=== PATIENT | male | born 1935 | race Caucasian/White ===

== ENCOUNTER 2018-05-07 17:49 | Inpatient (IN) | payer MEDICARE, OTHER ==
[~2018-05-07] VITALS: Ht 154.4 cm; Wt 77.1 kg
[2018-05-07] MEDS ORDERED: FLUT1BLS IH (18:21)
[2018-05-07] MEDS ORDERED: CYAN100T3 PO (18:21)
[2018-05-07] MEDS ORDERED: LEVO100T10 PO (18:21)
[2018-05-07] MEDS ORDERED: ESCI10TA PO (18:21)
[2018-05-07] MEDS ORDERED: EZET10TA13 PO (18:21)
[2018-05-07] MEDS ORDERED: ASPI-605 PO (18:21)
[2018-05-07] MEDS ORDERED: SIMV20TA2 PO (18:21)
[2018-05-07] MEDS ORDERED: AMITIZA 24 MCG (18:21)
[2018-05-07] MEDS ORDERED: TIOT18CA3 IH (18:21)
[2018-05-07] MEDS ORDERED: OMEP1CAP4 PO (18:21)
[2018-05-07] MEDS ORDERED: METO25TA6 PO (18:21)
[2018-05-07] MEDS ORDERED: VIT1TABL46 PO (18:21)
[2018-05-07] MEDS ORDERED: RANI300T4 PO (18:21)
[2018-05-07] MEDS ORDERED: DOCU-270 PO (18:21)
[2018-05-07] MEDS ORDERED: BIMA2.5D5 OP (18:21)
--- NOTE | 2018-05-07 18:52 | NUR ---
Dr Irby is at bedside evaluating the patient.
[2018-05-07 18:54] LABS: BASOPHILS % (AUTO) 0.5 % (0.0-2.0); EOSINOPHILS # (AUTO) 0.1 K/uL (0.0-0.7); EOSINOPHILS % (AUTO) 0.6 % (0.0-7.0); HEMATOCRIT 37.2 % (36.7-47.1); HEMOGLOBIN 12.4 g/dL (12.5-16.3); LYMPHOCYTES # (AUTO) 1.3 K/uL (20.0-40.0); LYMPHOCYTES % (AUTO) 12.7 % (20.5-51.5); MEAN CORPUSCULAR HEMOGLOBIN 31.5 uug (23.8-33.4); MEAN CORPUSCULAR HGB CONC 33 g/dL (32.5-36.3); MEAN CORPUSCULAR VOLUME 94.5 fL (73.0-96.2); MONOCYTES # (AUTO) 0.6 K/uL (2.0-10.0); MONOCYTES % (AUTO) 5.7 % (0.0-11.0); NEUTROPHILS # (AUTO) 8.2 K/uL (1.8-8.9); NEUTROPHILS % (AUTO) 80.5 % (38.5-71.5); PLATELET COUNT (AUTO) 197 K/uL (152-348); RED BLOOD CELL COUNT(AUTO) 3.93 MIL/uL (4.06-5.63); WHITE BLOOD COUNT (AUTO) 10.1 K/uL (3.6-10.2)
[2018-05-07 19:00] LABS: CARBON DIOXIDE 25 mmol/L (21-32); CHLORIDE 101 mmol/L (98-107); CREATININE 1.6 mg/dL (0.6-1.3); GLUCOSE 116 mg/dL (74-106); POTASSIUM 4.2 mmol/L (3.5-5.1); UREA NITROGEN, BLOOD 35 mg/dL (7-18)
[2018-05-07] MEDS ORDERED: IPRATROPIUM BROMIDE 0.5 MG/2.5 ML NEBU NEB ONE (19:00)
[2018-05-07] MEDS ORDERED: ALBUTEROL SULFATE 2.5 MG/3 ML NEBU NEB ONE (19:00)
[2018-05-07] MEDS ORDERED: ONDANSETRON ODT 4 MG TAB.RAPDIS SL ONE (19:00)
[2018-05-07 19:04] LABS: *BILIRUBIN,URIN NEGATIVE (NEGATIVE); *BLOOD, URINE NEGATIVE (NEGATIVE); *CLARITY,URINE SLIGHTLY CLOUDY (CLEAR); *COLOR,URINE YELLOW (YELLOW); *KETONES,URINE NEGATIVE (NEGATIVE); *PROTEIN,URINE 1+ (NEGATIVE); LEUKOCYTE ESTERASE ,URINE TRACE (NEGATIVE); NITRITE, URINE POSITIVE (NEGATIVE); UGLUCOSE NEGATIVE (NEGATIVE)
[2018-05-07] MEDS ORDERED: IPRATROPIUM BROMIDE 0.5 MG/2.5 ML NEBU ONE (19:04)
[2018-05-07] MEDS ORDERED: ALBUTEROL SULFATE 2.5 MG/3 ML NEBU ONE (19:04)
[2018-05-07] MEDS ORDERED: ONDANSETRON ODT 4 MG TAB.RAPDIS ONE (19:06)
--- NOTE | 2018-05-07 19:08 | NUR ---
Seen by MD, Orders received. Zofran administered. Breathing treatment being administered.
[2018-05-07 19:13] LABS: BACTERIA,URINE MODERATE /HPF (NONE SEEN); RBC,URINE 0-3 /HPF (0-3); SQUAMOUS EPITHELIAL CELL,UR FEW /HPF (NONE SEEN); WBC,URINE 20-50 /HPF (0-3)
[2018-05-07 19:14] LABS: ALANINE AMINOTRANSFERASE 24 U/L (16-63); ALKALINE PHOSPHATASE 58 U/L (50-136); ASPARTATE AMINOTRANSFERASE 23 U/L (15-37); BILIRUBIN,DIRECT 0.3 mg/dL (0.0-0.2); TOTAL PROTEIN, SERUM 7.3 g/dL (6.4-8.2)
[2018-05-07] MEDS ORDERED: methylPREDNISolone SOD SUCC 125 MG/2 ML VIAL IV ONE (19:30)
--- NOTE | 2018-05-07 19:30 | NUR ---
zofran administered as ordered.
--- NOTE | 2018-05-07 19:45 | NUR ---
Iv inserted gauge 22 on left for arm. Intact and patent
--- NOTE | 2018-05-07 19:50 | NUR ---
Call placed to [facility], Dr. Duenas has been paged.
[2018-05-07] MEDS ORDERED: methylPREDNISolone SOD SUCC 125 MG/2 ML VIAL ONE (19:53)
--- NOTE | 2018-05-07 19:55 | NUR ---
LETTY spoke to Dr. Duenas.
[2018-05-07] MEDS ORDERED: AZITHROMYCIN IV 500 MG in IV DEXTROSE 5% 250 ML IV ONE (20:00)
[2018-05-07] MEDS ORDERED: IV NORMAL SALINE 1000 ML BAG IV ONE ×2 (20:00→20:30)
[2018-05-07] MEDS ORDERED: CEFTRIAXONE 1 G in IV DEXTROSE 5% 50 ML IV ONE (20:00)
--- NOTE | 2018-05-07 20:00 | NUR ---
Rocephin 1gm administered as ordered. No adverse reactions noted.
[2018-05-07] MEDS ORDERED: CEFTRIAXONE 1 G VIAL ONE (20:07)
[2018-05-07] MEDS ORDERED: AZITHROMYCIN 500 MG VIAL IV ONE (20:07)
--- NOTE | 2018-05-07 20:10 | NUR ---
MD in room. Informed pt and family of pending admission.
[2018-05-07 20:24] LABS: ABG BASE EXCESS 2.4 mmol/L; ABG HCO3 25.2 mmol/L; ABG PCO2 32.8 mmHg (35.0-45.0); ABG PH 7.503 (7.350-7.450); ABG PO2 49.7 mmHg (75.0-100.0); ABG SITE RIGHT RADIAL; MetHb 0.3 % (0.0-1.5); O2Hb 82.6 % (94.0-97.0)
--- NOTE | 2018-05-07 21:30 | NUR ---
ADMITTED PATIENT IN TELE UNIT UNDER THE CARE DR. ROWLAND, INVENTORY LIST DONE. PATIENT AWAKE SPEAK ALGERIAN, DAUGHTER INTERPRET FOR THE FATHER. PATIENT ON OXYGEN VIA MASK 10 LITER, OXYGEN SAT 92-97%, CONT TO MONITOR.
[2018-05-07] MEDS ORDERED: ACETAMINOPHEN 325 MG TABLET PO PRN (21:45)
[2018-05-07] MEDS ORDERED: HYDROCODONE/APAP 5-325MG TABLET PO PRN (21:45)
[2018-05-07] MEDS ORDERED: Z GUARD REMEDY PASTE 57 GM TUBE TOP PRN (21:45)
[2018-05-07] MEDS ORDERED: MAGNESIUM HYDROXIDE 30 ML LIQUID UDC PO PRN (21:45)
[2018-05-07] MEDS ORDERED: ONDANSETRON 4 MG/2 ML VIAL IV PRN (21:45)
[2018-05-07] MEDS ORDERED: ZOLPIDEM 5 MG TABLET PO PRN (21:45)
[2018-05-07 21:56] VITALS: BP 130/69
[2018-05-08] VITALS: BP 140/66
[2018-05-08 04:00] VITALS: BP 127/80
[2018-05-08 05:17] LABS: BASOPHILS % (AUTO) 0.1 % (0.0-2.0); HEMATOCRIT 34.4 % (36.7-47.1); HEMOGLOBIN 11.6 g/dL (12.5-16.3); LYMPHOCYTES # (AUTO) 0.4 K/uL (20.0-40.0); LYMPHOCYTES % (AUTO) 6.1 % (20.5-51.5); MEAN CORPUSCULAR HEMOGLOBIN 31.3 uug (23.8-33.4); MEAN CORPUSCULAR HGB CONC 34 g/dL (32.5-36.3); MEAN CORPUSCULAR VOLUME 92.9 fL (73.0-96.2); MONOCYTES # (AUTO) 0.1 K/uL (2.0-10.0); MONOCYTES % (AUTO) 1.2 % (0.0-11.0); NEUTROPHILS # (AUTO) 6.2 K/uL (1.8-8.9); NEUTROPHILS % (AUTO) 92.6 % (38.5-71.5); PLATELET COUNT (AUTO) 200 K/uL (152-348); WHITE BLOOD COUNT (AUTO) 6.7 K/uL (3.6-10.2)
--- NOTE | 2018-05-08 06:15 | NUR ---
PATIENT SLEPT MOST OF THE NIGHT, HOB ELEVATED NO SOB NO CHEST PAIN, TELE SINUS RHYTHM AT THIS TIME. CONT ON OXYGEN 10 LPM VIA MASK, O2 SAT 93% TO 97%. PATIENT OXYGEN SAT GOES DOWN WHEN OR DURING ACTIVITY, WITH SLIGHT COUGH WITH SMALL AMOUNT OF WHITISH SPUTUM, CONT TO MONITOR.
[2018-05-08 07:07] LABS: ALANINE AMINOTRANSFERASE 22 U/L (16-63); ALKALINE PHOSPHATASE 62 U/L (50-136); ASPARTATE AMINOTRANSFERASE 21 U/L (15-37); BILIRUBIN,TOTAL 0.6 mg/dL (0.2-1.0); CARBON DIOXIDE 26 mmol/L (21-32); CHLORIDE 101 mmol/L (98-107); CHOLESTEROL 136 mg/dL (<200); CREATININE 1.4 mg/dL (0.6-1.3); GLUCOSE 190 mg/dL (74-106); HDL CHOLESTEROL 84 mg/dL (40-60); MAGNESIUM 1.8 mg/dL (1.8-2.4); PHOSPHOROUS 3.7 mg/dL (2.5-4.9); POTASSIUM 4.2 mmol/L (3.5-5.1); TOTAL PROTEIN, SERUM 7.1 g/dL (6.4-8.2); TRIGLYCERIDES 80 MG/DL (30-150); UREA NITROGEN, BLOOD 29 mg/dL (7-18)
--- NOTE | 2018-05-08 07:15 | NUR ---
RECEIVED PATIENT AWAKE ON BED, AAOX3 CUBAN SPEAKING BUT CAN MAKE NEEDS KNOWN. NO ACUTE DISTRESS NOTED ON O2 @ 6LPM VIA MASK. O2 SAT WNL. NO SOB NOTED AT THIS TIME. IV ACCESS ON LEFT FOREARM #22 INTACT AND PATENT. RIGHT UROSTOMY BAG IN PLACE. COMFORT MEASURES PROVIDED. CALL LIGHT WITHIN REACH.
--- NOTE | 2018-05-08 08:15 | NUR ---
SEEN AND EXAMINED BY DR ROWLAND.
[2018-05-08] MEDS: ENOXAPARIN SODIUM 40 MG/0.4 ML DISP.SYRIN SQ SCH (08:56)
[2018-05-08] MEDS ORDERED: methylPREDNISolone SOD SUCC 125 MG/2 ML VIAL IV SCH (11:00)
[2018-05-08] MEDS ORDERED: IPRATROPIUM BROMIDE 0.5 MG/2.5 ML NEBU NEB PRN (11:00)
[2018-05-08] MEDS ORDERED: ALBUTEROL SULFATE 2.5 MG/3 ML NEBU NEB PRN (11:00)
[2018-05-08] MEDS: IPRATROPIUM BROMIDE 0.5 MG/2.5 ML NEBU NEB SCH ×3 (11:53→19:34)
[2018-05-08] MEDS: ALBUTEROL SULFATE 2.5 MG/3 ML NEBU NEB SCH ×3 (11:53→19:34)
[2018-05-08] MEDS: methylPREDNISolone SOD SUCC 40 MG/ML VIAL IV SCH ×2 (11:56→21:13)
[2018-05-08 12:18] VITALS: BP 114/73
[2018-05-08 12:20] VITALS: BP 114/73
--- NOTE | 2018-05-08 12:30 | NUR ---
OXYGEN TITRATED BY RT TO O2 @ 5LPM VIA NASAL CANNULA. O2 SAT WNL. WILL CONTINUE TO MONITOR CLOSELY.
--- NOTE | 2018-05-08 12:54 | NUR ---
ADDITIONAL NOTE: PATIENT ON TELE SR W/ PVC.
[2018-05-08 16:25] VITALS: BP 125/80
[2018-05-08] MEDS: CEFTRIAXONE 1 G in IV DEXTROSE 5% 50 ML IV SCH (18:39)
--- NOTE | 2018-05-08 19:40 | NUR ---
PATIENT AWAKE, NO SOB NO CHEST PAIN NOTED, ON OXYGEN 5LPM VIA NC TOLERATE WELL, UROSTOMY DRAINING WITH YELLOW COLOR URINE IN MODERATE AMOUNT, NO FURTHER EPISODES OF COUGHING NOTED AT THIS TIME. CONT ON ABX IV WITH NO ADVERSE REACTION NOTED, NO COMPLAIN OF PAIN AT THIS TIME. CALL LIGHT WITHIN REACH.
[2018-05-08 20:00] VITALS: BP 122/80
[2018-05-08] MEDS: AZITHROMYCIN IV 500 MG in IV DEXTROSE 5% 250 ML IV SCH (21:13)
[2018-05-09] VITALS: BP 145/66
[2018-05-09 04:00] VITALS: BP 152/80
[2018-05-09 06:53] LABS: CARBON DIOXIDE 24 mmol/L (21-32); CHLORIDE 104 mmol/L (98-107); CREATININE 1.2 mg/dL (0.6-1.3); GLUCOSE 151 mg/dL (74-106); MAGNESIUM 1.9 mg/dL (1.8-2.4); POTASSIUM 4.5 mmol/L (3.5-5.1); UREA NITROGEN, BLOOD 32 mg/dL (7-18)
[2018-05-09 06:59] LABS: LYMPHOCYTES # (AUTO) 0.5 K/uL (20.0-40.0); MEAN CORPUSCULAR HGB CONC 33 g/dL (32.5-36.3); MONOCYTES # (AUTO) 0.4 K/uL (2.0-10.0)
[2018-05-09 07:12] LABS: HEMATOCRIT 35.5 % (36.7-47.1); HEMOGLOBIN 11.9 g/dL (12.5-16.3); MEAN CORPUSCULAR HEMOGLOBIN 31.7 uug (23.8-33.4); MEAN CORPUSCULAR VOLUME 94.9 fL (73.0-96.2); MONOCYTES % (AUTO) 3.3 % (0.0-11.0); NEUTROPHILS # (AUTO) 11.1 K/uL (1.8-8.9); NEUTROPHILS % (AUTO) 92.7 % (38.5-71.5); PLATELET COUNT (AUTO) 228 K/uL (152-348); RED BLOOD CELL COUNT(AUTO) 3.74 MIL/uL (4.06-5.63)
[2018-05-09] MEDS: IPRATROPIUM BROMIDE 0.5 MG/2.5 ML NEBU NEB SCH ×4 (07:50→19:14)
[2018-05-09] MEDS: ALBUTEROL SULFATE 2.5 MG/3 ML NEBU NEB SCH ×4 (07:50→19:14)
--- NOTE | 2018-05-09 08:00 | NUR ---
Received patient awake, alert x3-4. With G 22 intact and patent on left forearm. Flushed accordingly. Intact urostomy patent, draining to yellow colored urine.
[2018-05-09] MEDS: methylPREDNISolone SOD SUCC 40 MG/ML VIAL IV SCH ×2 (08:56→20:07)
[2018-05-09] MEDS: ENOXAPARIN SODIUM 40 MG/0.4 ML DISP.SYRIN SQ SCH (08:57)
--- NOTE | 2018-05-09 10:00 | NUR ---
Talked with daughter on phone, daughter requested for something to calm patient as she is planning to tell patient about recent family loss. Informed Dr Duenas. PRN Ativan PO 1mg Q6H ordered.
[2018-05-09 11:07] VITALS: BP 110/56
[2018-05-09 15:07] VITALS: BP 120/57
--- NOTE | 2018-05-09 15:38 | NUR ---
O2 titrated to 3LPM tolerating well. No SOB sating well above 90%. TELE D/C by Dr Duenas
[2018-05-09] MEDS ORDERED: BIMATOPROST 0.01% OPHT DROP 2.5 ML BOTTLE OP SCH (17:30)
[2018-05-09] MEDS: LORAZEPAM 1 MG TABLET PO PRN (18:01)
[2018-05-09] MEDS: LEVOTHYROXINE SODIUM 100 MCG TABLET PO SCH (18:30)
[2018-05-09] MEDS: FLUTICASONE/VILANTEROL 1 EACH BLST.W.DEV IH SCH (18:30)
[2018-05-09] MEDS: METOPROLOL TARTRATE 25 MG TABLET PO SCH (18:30)
[2018-05-09] MEDS: ESCITALOPRAM OXALATE 10 MG TABLET PO SCH (18:30)
[2018-05-09] MEDS: ASPIRIN EC 81 MG TABLET.DR PO SCH (18:31)
[2018-05-09] MEDS: CEFTRIAXONE 1 G in IV DEXTROSE 5% 50 ML IV SCH (18:31)
[2018-05-09] MEDS: EZETIMIBE 10 MG TABLET PO SCH (18:31)
[2018-05-09] MEDS: SIMVASTATIN 20 MG TABLET PO SCH (20:07)
[2018-05-09] MEDS: AZITHROMYCIN IV 500 MG in IV DEXTROSE 5% 250 ML IV SCH (20:07)
[2018-05-09] MEDS: LUMIGAN 0.01% EACHEYE SCH (20:13)
[2018-05-09 20:45] VITALS: BP 141/59
[2018-05-10 03:29] VITALS: BP 135/52
[2018-05-10] MEDS: LEVOTHYROXINE SODIUM 100 MCG TABLET PO SCH (06:07)
[2018-05-10 06:56] LABS: ALANINE AMINOTRANSFERASE 36 U/L (16-63); ALKALINE PHOSPHATASE 52 U/L (50-136); ASPARTATE AMINOTRANSFERASE 31 U/L (15-37); BILIRUBIN,TOTAL 0.4 mg/dL (0.2-1.0); CARBON DIOXIDE 28 mmol/L (21-32); CHLORIDE 103 mmol/L (98-107); CREATININE 1.2 mg/dL (0.6-1.3); GLUCOSE 125 mg/dL (74-106); PHOSPHOROUS 3.9 mg/dL (2.5-4.9); POTASSIUM 4.3 mmol/L (3.5-5.1); TOTAL PROTEIN, SERUM 6.7 g/dL (6.4-8.2); UREA NITROGEN, BLOOD 35 mg/dL (7-18)
[2018-05-10 07:09] LABS: HEMATOCRIT 34.7 % (36.7-47.1); HEMOGLOBIN 11.6 g/dL (12.5-16.3); LYMPHOCYTES # (AUTO) 0.7 K/uL (20.0-40.0); LYMPHOCYTES % (AUTO) 9.8 % (20.5-51.5); MEAN CORPUSCULAR HEMOGLOBIN 31.5 uug (23.8-33.4); MEAN CORPUSCULAR HGB CONC 33 g/dL (32.5-36.3); MEAN CORPUSCULAR VOLUME 94.3 fL (73.0-96.2); MONOCYTES # (AUTO) 0.4 K/uL (2.0-10.0); MONOCYTES % (AUTO) 6.4 % (0.0-11.0); NEUTROPHILS # (AUTO) 5.6 K/uL (1.8-8.9); NEUTROPHILS % (AUTO) 83.8 % (38.5-71.5); PLATELET COUNT (AUTO) 205 K/uL (152-348); RED BLOOD CELL COUNT(AUTO) 3.68 MIL/uL (4.06-5.63); WHITE BLOOD COUNT (AUTO) 6.7 K/uL (3.6-10.2)
[2018-05-10] MEDS: ALBUTEROL SULFATE 2.5 MG/3 ML NEBU NEB SCH ×4 (07:35→19:37)
[2018-05-10] MEDS: IPRATROPIUM BROMIDE 0.5 MG/2.5 ML NEBU NEB SCH ×4 (07:35→19:36)
[2018-05-10] MEDS: FLUTICASONE/VILANTEROL 1 EACH BLST.W.DEV IH SCH (08:10)
[2018-05-10] MEDS: CYANOCOBALAMIN 100 MCG TABLET PO SCH (08:11)
[2018-05-10] MEDS: DOCUSATE SODIUM 100 MG CAPSULE PO SCH ×2 (08:11→16:16)
[2018-05-10] MEDS: ASPIRIN EC 81 MG TABLET.DR PO SCH (08:11)
[2018-05-10] MEDS: EZETIMIBE 10 MG TABLET PO SCH (08:11)
[2018-05-10] MEDS: METOPROLOL TARTRATE 25 MG TABLET PO SCH (08:11)
[2018-05-10] MEDS: ESCITALOPRAM OXALATE 10 MG TABLET PO SCH (08:11)
[2018-05-10] MEDS: ENOXAPARIN SODIUM 40 MG/0.4 ML DISP.SYRIN SQ SCH (08:12)
[2018-05-10] MEDS: methylPREDNISolone SOD SUCC 40 MG/ML VIAL IV SCH (08:25)
[2018-05-10 11:01] VITALS: BP 129/69
--- NOTE | 2018-05-10 13:00 | NUR ---
pt nose bleed made aware,pt on Lovenox
[2018-05-10] MEDS ORDERED: CEPHALEXIN MONOHYDRATE 500 MG CAPSULE PO SCH (14:00)
--- NOTE | 2018-05-10 14:23 | NUR ---
pt still bleeding from nose,per md orders cbc orders
[2018-05-10 14:40] LABS: BASOPHILS % (AUTO) 0.2 % (0.0-2.0); HEMATOCRIT 38.1 % (36.7-47.1); HEMOGLOBIN 12.5 g/dL (12.5-16.3); LYMPHOCYTES # (AUTO) 0.7 K/uL (20.0-40.0); LYMPHOCYTES % (AUTO) 10.4 % (20.5-51.5); MEAN CORPUSCULAR HEMOGLOBIN 30.9 uug (23.8-33.4); MEAN CORPUSCULAR HGB CONC 33 g/dL (32.5-36.3); MEAN CORPUSCULAR VOLUME 94.3 fL (73.0-96.2); MONOCYTES # (AUTO) 0.3 K/uL (2.0-10.0); NEUTROPHILS # (AUTO) 5.6 K/uL (1.8-8.9); NEUTROPHILS % (AUTO) 85.4 % (38.5-71.5); PLATELET COUNT (AUTO) 244 K/uL (152-348); RED BLOOD CELL COUNT(AUTO) 4.04 MIL/uL (4.06-5.63); WHITE BLOOD COUNT (AUTO) 6.5 K/uL (3.6-10.2)
[2018-05-10] MEDS ORDERED: OXYMETAZOLINE NASAL 0.05% 15 ML SPRAY NS PRN (15:00)
[2018-05-10 15:03] VITALS: BP 132/72
[2018-05-10] MEDS: LORAZEPAM 1 MG TABLET PO PRN (16:29)
[2018-05-10] MEDS: predniSONE 20 MG TABLET PO SCH (17:11)
[2018-05-10 20:00] VITALS: BP 133/64
[2018-05-10] MEDS ORDERED: LEVOFLOXACIN 500 MG TABLET PO SCH (20:00)
[2018-05-10] MEDS ORDERED: AZITHROMYCIN 250 MG TABLET PO SCH (20:00)
[2018-05-10] MEDS: LUMIGAN 0.01% EACHEYE SCH (20:50)
[2018-05-10] MEDS: SIMVASTATIN 20 MG TABLET PO SCH (20:50)
[2018-05-10] MEDS: AMOXICILLIN-CLAVUL 500-125MG TABLET PO SCH (20:50)
[2018-05-11 04:00] VITALS: BP 109/75
[2018-05-11] MEDS: LEVOTHYROXINE SODIUM 100 MCG TABLET PO SCH (06:01)
--- NOTE | 2018-05-11 06:19 | NUR ---
PATIENT SLEPT WELL ON THIS SHIFT. NO C/O OF SOB ON THIS SHIFT, NO FEVER. NO FURTHER CHANGES IN STATUS AT PRESENT
[2018-05-11] MEDS: ALBUTEROL SULFATE 2.5 MG/3 ML NEBU NEB SCH ×4 (07:35→19:20)
[2018-05-11] MEDS: IPRATROPIUM BROMIDE 0.5 MG/2.5 ML NEBU NEB SCH ×4 (07:35→19:19)
[2018-05-11] MEDS: ESCITALOPRAM OXALATE 10 MG TABLET PO SCH (08:04)
[2018-05-11] MEDS: DOCUSATE SODIUM 100 MG CAPSULE PO SCH ×2 (08:04→16:41)
[2018-05-11] MEDS: FLUTICASONE/VILANTEROL 1 EACH BLST.W.DEV IH SCH (08:04)
[2018-05-11] MEDS: predniSONE 20 MG TABLET PO SCH (08:04)
[2018-05-11] MEDS: AMOXICILLIN-CLAVUL 500-125MG TABLET PO SCH ×2 (08:04→21:48)
[2018-05-11] MEDS: METOPROLOL TARTRATE 25 MG TABLET PO SCH (08:04)
[2018-05-11] MEDS: CYANOCOBALAMIN 100 MCG TABLET PO SCH (08:04)
[2018-05-11] MEDS: MAG HYDROX/AL HYDROX/SIMETH 30 ML LIQUID UDC PO PRN ×2 (10:24→16:41)
[2018-05-11 15:44] VITALS: BP 100/57
[2018-05-11] MEDS: LORAZEPAM 1 MG TABLET PO PRN (16:41)
[2018-05-11 20:00] VITALS: BP 126/75
--- NOTE | 2018-05-11 20:00 | NUR ---
RECEIVED PATIENT ASLEEP ON BED, NO SIGNS OF ACUTE DISTRESS NOTED AT THIS TIME. SAFETY MEASURES INITIATED, CALL WATTS WITHIN REACH.
[2018-05-11] MEDS: SIMVASTATIN 20 MG TABLET PO SCH (21:48)
[2018-05-11] MEDS: LUMIGAN 0.01% EACHEYE SCH (21:48)
[2018-05-11] MEDS ORDERED: FLUCONAZOLE 100 MG TABLET PO ONE (22:00)
[2018-05-12 05:00] VITALS: BP 132/67
[2018-05-12 06:02] LABS: BASOPHILS % (AUTO) 0.1 % (0.0-2.0); EOSINOPHILS % (AUTO) 0.3 % (0.0-7.0); HEMATOCRIT 39.3 % (36.7-47.1); HEMOGLOBIN 13.2 g/dL (12.5-16.3); LYMPHOCYTES # (AUTO) 1.1 K/uL (20.0-40.0); LYMPHOCYTES % (AUTO) 13.8 % (20.5-51.5); MEAN CORPUSCULAR HEMOGLOBIN 31.4 uug (23.8-33.4); MEAN CORPUSCULAR HGB CONC 34 g/dL (32.5-36.3); MEAN CORPUSCULAR VOLUME 93.2 fL (73.0-96.2); MONOCYTES # (AUTO) 0.9 K/uL (2.0-10.0); MONOCYTES % (AUTO) 10.9 % (0.0-11.0); NEUTROPHILS # (AUTO) 5.9 K/uL (1.8-8.9); NEUTROPHILS % (AUTO) 74.9 % (38.5-71.5); PLATELET COUNT (AUTO) 273 K/uL (152-348); RED BLOOD CELL COUNT(AUTO) 4.21 MIL/uL (4.06-5.63); WHITE BLOOD COUNT (AUTO) 7.9 K/uL (3.6-10.2)
[2018-05-12 06:08] LABS: CARBON DIOXIDE 30 mmol/L (21-32); CHLORIDE 102 mmol/L (98-107); CREATININE 1.5 mg/dL (0.6-1.3); GLUCOSE 115 mg/dL (74-106); MAGNESIUM 2.4 mg/dL (1.8-2.4); PHOSPHOROUS 3.7 mg/dL (2.5-4.9); POTASSIUM 4.3 mmol/L (3.5-5.1); UREA NITROGEN, BLOOD 53 mg/dL (7-18)
[2018-05-12] MEDS: LEVOTHYROXINE SODIUM 100 MCG TABLET PO SCH (06:39)
--- NOTE | 2018-05-12 06:56 | NUR ---
PATIENT SLEPT THROUGHOUT THE SHIFT WITH NO COMPLAINTS OF ANY DISCOMFORT. PATIENT BEEN COMPLAINT WITH CARE. PATIENT ON UROSTOMY BAG, WITH CLEAR YELLOW URINE OUTPUT. KEPT PATIENT SAFE AND COMFORTABLE AT ALL TIMES. PT BELONGINGS AND CALL WATTS WITHIN REACH.
[2018-05-12] MEDS: IPRATROPIUM BROMIDE 0.5 MG/2.5 ML NEBU NEB SCH (07:47)
[2018-05-12] MEDS: ALBUTEROL SULFATE 2.5 MG/3 ML NEBU NEB SCH (07:47)
[2018-05-12 08:16] VITALS: BP 132/67
[2018-05-12] MEDS: AMOXICILLIN-CLAVUL 500-125MG TABLET PO SCH (08:16)
[2018-05-12] MEDS: ESCITALOPRAM OXALATE 10 MG TABLET PO SCH (08:16)
[2018-05-12] MEDS: DOCUSATE SODIUM 100 MG CAPSULE PO SCH (08:16)
[2018-05-12] MEDS: METOPROLOL TARTRATE 25 MG TABLET PO SCH (08:16)
[2018-05-12] MEDS: CYANOCOBALAMIN 100 MCG TABLET PO SCH (08:16)
[2018-05-12] MEDS: FLUTICASONE/VILANTEROL 1 EACH BLST.W.DEV IH SCH (08:17)
[2018-05-12] MEDS: MAG HYDROX/AL HYDROX/SIMETH 30 ML LIQUID UDC PO PRN (08:45)
[2018-05-12] MEDS: LORAZEPAM 1 MG TABLET PO PRN (08:45)
[2018-05-12] MEDS ORDERED: predniSONE 20 MG TABLET PO SCH (09:00)
[2018-05-12] MEDS ORDERED: METH4TAB3 PO (09:20)
[2018-05-12] MEDS ORDERED: METO25TA6 PO (09:20)
[2018-05-12] MEDS ORDERED: Amoxicillin-Clav 500-125MG Tab PO (09:20)
[2018-05-12] MEDS ORDERED: FLUC100T PO (09:20)
[2018-05-12] MEDS ORDERED: FLUCONAZOLE 100 MG TABLET PO SCH (10:03)
--- NOTE | 2018-05-12 10:23 | NUR ---
d/c orders received noted and carried out,d/c heplock per md orders.d/c instruction and education given to the pt .pt verbalized understanding al the instruction and said he will follow up with his dr in one week,pt left the facility via private car in stable condition
[2018-05-13] MEDS ORDERED: SIMV10TA6 PO (20:46)
[2018-05-13] MEDS ORDERED: CEPH250C PO (20:46)
[2018-05-13] MEDS ORDERED: LUBI24CA5 PO (20:46)
== END 2018-05-12 10:15 | disposition home health service (06) | DRG 871 ==
LOC: ER 17:51 → TELE 20:58 → MED 05-09 11:15
PROVIDERS: ADMIT Internal Medicine; ATTEND Internal Medicine
DX: A41.9 Sepsis, unspecified organism (principal); J15.9 Unspecified bacterial pneumonia; J96.21 Acute and chronic respiratory failure with hypoxia; N17.0 Acute kidney failure with tubular necrosis; I50.31 Acute diastolic (congestive) heart failure; G92 Toxic encephalopathy; D68.59 Other primary thrombophilia; I13.0 Hypertensive heart and chronic kidney disease with heart failure and stage 1 through stage 4 chronic kidney disease, or unspecified chronic kidney disease; E44.0 Moderate protein-calorie malnutrition; J44.0 Chronic obstructive pulmonary disease with (acute) lower respiratory infection; J44.1 Chronic obstructive pulmonary disease with (acute) exacerbation; N39.0 Urinary tract infection, site not specified; B48.8 Other specified mycoses; Z85.51 Personal history of malignant neoplasm of bladder; D63.8 Anemia in other chronic diseases classified elsewhere; E11.22 Type 2 diabetes mellitus with diabetic chronic kidney disease; E66.9 Obesity, unspecified; Z68.32 Body mass index [BMI] 32.0-32.9, adult; E78.5 Hyperlipidemia, unspecified; Z90.79 Acquired absence of other genital organ(s); F03.90 Unspecified dementia, unspecified severity, without behavioral disturbance, psychotic disturbance, mood disturbance, and anxiety; I25.10 Atherosclerotic heart disease of native coronary artery without angina pectoris; N18.9 Chronic kidney disease, unspecified; Z85.819 Personal history of malignant neoplasm of unspecified site of lip, oral cavity, and pharynx; Z87.891 Personal history of nicotine dependence; Z99.81 Dependence on supplemental oxygen; R19.7 Diarrhea, unspecified; Z85.46 Personal history of malignant neoplasm of prostate; D64.9 Anemia, unspecified
CPT/HCPCS: 36415; 36600; 70030-TC; 71045; 76770; 83605; 83735; 84100; 85025; 87040; 87070; 87077; 87400; 93005; 93307; 94640; 94664; A4663; G0378; J0456; J0696; J1650; J2920; J2930; J3590; J7030; J7050; J7060; J7512; Q0162

== ENCOUNTER 2018-05-13 19:06 | Inpatient (IN) | payer MEDICARE, OTHER ==
[~2018-05-13] VITALS: Ht 172.7 cm; Wt 72.6 kg
[~2018-05-13 19:06] MED LIST: AMITIZA 24 MCG; ASPI-605 PO; Amoxicillin-Clav 500-125MG Tab PO; BIMA2.5D5 OP; CYAN100T3 PO; DOCU-270 PO; ESCI10TA PO; FLUC100T PO; FLUT1BLS IH; LEVO100T10 PO; METH4TAB3 PO; METO25TA6 PO; OMEP1CAP4 PO; TIOT18CA3 IH; VIT1TABL46 PO
[2018-05-13] MEDS ORDERED: ONDANSETRON 4 MG/2 ML VIAL IV ONE (19:30)
[2018-05-13] MEDS ORDERED: ONDANSETRON 4 MG/2 ML VIAL ONE (19:30)
[2018-05-13 20:07] LABS: BASOPHILS # (AUTO) 0.1 K/uL (0.0-8.0); BASOPHILS % (AUTO) 0.7 % (0.0-2.0); EOSINOPHILS # (AUTO) 0.2 K/uL (0.0-0.7); EOSINOPHILS % (AUTO) 0.8 % (0.0-7.0); HEMATOCRIT 43.8 % (36.7-47.1); HEMOGLOBIN 14.7 g/dL (12.5-16.3); LYMPHOCYTES # (AUTO) 3.4 K/uL (20.0-40.0); LYMPHOCYTES % (AUTO) 16.8 % (20.5-51.5); MEAN CORPUSCULAR HEMOGLOBIN 31.3 uug (23.8-33.4); MEAN CORPUSCULAR HGB CONC 34 g/dL (32.5-36.3); MEAN CORPUSCULAR VOLUME 93.3 fL (73.0-96.2); MONOCYTES # (AUTO) 0.1 K/uL (2.0-10.0); MONOCYTES % (AUTO) 0.5 % (0.0-11.0); NEUTROPHILS # (AUTO) 16.6 K/uL (1.8-8.9); NEUTROPHILS % (AUTO) 81.2 % (38.5-71.5); PLATELET COUNT (AUTO) 436 K/uL (152-348); RED BLOOD CELL COUNT(AUTO) 4.69 MIL/uL (4.06-5.63); WHITE BLOOD COUNT (AUTO) 20.5 K/uL (3.6-10.2)
[2018-05-13 20:13] LABS: CARBON DIOXIDE 25 mmol/L (21-32); CHLORIDE 100 mmol/L (98-107); CREATININE 2.6 mg/dL (0.6-1.3); GLUCOSE 180 mg/dL (74-106); POTASSIUM 4.8 mmol/L (3.5-5.1); UREA NITROGEN, BLOOD 72 mg/dL (7-18)
[2018-05-13] MEDS ORDERED: PIPERACILLIN SODIUM/TAZOBACTAM 3.375 G in IV DEXTROSE 5% 50 ML IV ONE (20:15)
[2018-05-13] MEDS ORDERED: LEVOFLOXACIN 500 MG/D5W 100ML PIGGYBACK IV ONE (20:15)
[2018-05-13] MEDS ORDERED: ALBUTEROL SULFATE 2.5 MG/3 ML NEBU NEB ONE (20:15)
[2018-05-13] MEDS ORDERED: methylPREDNISolone SOD SUCC 125 MG/2 ML VIAL IV ONE (20:15)
[2018-05-13] MEDS ORDERED: IPRATROPIUM BROMIDE 0.5 MG/2.5 ML NEBU NEB ONE (20:15)
[2018-05-13 20:18] LABS: ALANINE AMINOTRANSFERASE 63 U/L (16-63); ALKALINE PHOSPHATASE 77 U/L (50-136); ASPARTATE AMINOTRANSFERASE 30 U/L (15-37); BILIRUBIN,DIRECT 0.1 mg/dL (0.0-0.2); BILIRUBIN,TOTAL 0.5 mg/dL (0.2-1.0); LIPASE 252 U/L (73-393); TOTAL PROTEIN, SERUM 7.8 g/dL (6.4-8.2)
[2018-05-13] MEDS ORDERED: IPRATROPIUM BROMIDE 0.5 MG/2.5 ML NEBU ONE (20:20)
[2018-05-13] MEDS ORDERED: ALBUTEROL SULFATE 2.5 MG/ 0.5 ML NEBU ONE (20:21)
[2018-05-13] MEDS ORDERED: PIPERACILLIN/TAZOBACTAM/D5W 50 ML IV ONE (20:30)
[2018-05-13] MEDS ORDERED: LEVOFLOXACIN 500 MG/D5W 100 ML ONE (20:30)
[2018-05-13] MEDS ORDERED: methylPREDNISolone SOD SUCC 125 MG/2 ML VIAL ONE (20:30)
[2018-05-13 20:34] LABS: ABG BASE EXCESS -3.1 mmol/L; ABG HCO3 20.6 mmol/L; ABG PCO2 33.2 mmHg (35.0-45.0); ABG PH 7.411 (7.350-7.450); ABG PO2 58.5 mmHg (75.0-100.0); ABG SITE LEFT RADIAL; ABG TOTAL HEMOGLOBIN 14.7 G/dL (13.5-18.0); COHb 1.6 % (0.5-1.5); MetHb 0.3 % (0.0-1.5); O2Hb 86.4 % (94.0-97.0); VENT MODE Nasal Cannula
[2018-05-13] MEDS ORDERED: IV NORMAL SALINE 1000 ML BAG IV ONE (20:45)
[2018-05-13] MEDS ORDERED: LUBI24CA5 PO (20:46)
[2018-05-13] MEDS ORDERED: SIMV10TA6 PO (20:46)
[2018-05-13] MEDS ORDERED: CEPH250C PO (20:46)
[2018-05-13 20:51] LABS: BAND % (MANUAL) 8 % (0-10); LYMPHOCYTES % (MANUAL) 13 % (20-40); MONOCYTES % (MANUAL) 2 % (2-10); NEUTROPHILS % (MANUAL) 77 % (42-75)
[2018-05-13] MEDS ORDERED: diphenhydrAMINE 50 MG/1 ML VIAL ONE (21:51)
[2018-05-13] MEDS ORDERED: diphenhydrAMINE 50 MG/1 ML VIAL IV PRN ×2 (22:00→22:45)
[2018-05-13] MEDS ORDERED: Z GUARD REMEDY PASTE 57 GM TUBE TOP PRN (22:45)
[2018-05-13] MEDS ORDERED: MAGNESIUM HYDROXIDE 30 ML LIQUID UDC PO PRN (22:45)
[2018-05-13] MEDS ORDERED: ACETAMINOPHEN 325 MG TABLET PO PRN (22:45)
[2018-05-13] MEDS ORDERED: ONDANSETRON 4 MG/2 ML VIAL IV PRN (22:45)
[2018-05-13] MEDS ORDERED: ALBUTEROL SULFATE 2.5 MG/3 ML NEBU NEB PRN (22:45)
[2018-05-13] MEDS ORDERED: IPRATROPIUM BROMIDE 0.5 MG/2.5 ML NEBU NEB PRN (22:45)
[2018-05-13] MEDS ORDERED: ACETAMINOPHEN 650 MG SUPP.RECT RC PRN (22:45)
[2018-05-13] MEDS ORDERED: HYDROCODONE/APAP 5-325MG TABLET PO PRN (22:45)
[2018-05-13] MEDS ORDERED: VANCOMYCIN IV 1 G in PREMIXED 0 EACH IV ONE (23:30)
[2018-05-13] MEDS ORDERED: VANCOMYCIN IV 200 ML ONE (23:38)
[2018-05-14] VITALS (7 sets, daily range): BP systolic 90–110; BP diastolic 42–64
[2018-05-14] MEDS: IV NS 1000 ML 1,000 ML IV PRN ×2 (02:41→17:19)
[2018-05-14] MEDS ORDERED: AZTREONAM 1 G VIAL ONE (05:43)
[2018-05-14 06:14] LABS: ABG BASE EXCESS -2.6 mmol/L; ABG HCO3 21.4 mmol/L; ABG PCO2 34.7 mmHg (35.0-45.0); ABG PH 7.408 (7.350-7.450); ABG PO2 61.6 mmHg (75.0-100.0); ABG SITE LEFT RADIAL; ABG TOTAL HEMOGLOBIN 12.9 G/dL (13.5-18.0); COHb 1.6 % (0.5-1.5); MetHb 0.3 % (0.0-1.5); O2Hb 89.4 % (94.0-97.0)
[2018-05-14] MEDS: AZTREONAM 1 G in IV NORMAL SALINE 50 ML IV SCH ×2 (06:18→14:36)
[2018-05-14] MEDS: methylPREDNISolone SOD SUCC 40 MG/ML VIAL IV SCH ×3 (06:18→21:42)
[2018-05-14 06:24] LABS: BASOPHILS % (AUTO) 0.1 % (0.0-2.0); HEMATOCRIT 36.9 % (36.7-47.1); HEMOGLOBIN 12.4 g/dL (12.5-16.3); LYMPHOCYTES # (AUTO) 0.5 K/uL (20.0-40.0); LYMPHOCYTES % (AUTO) 2.3 % (20.5-51.5); MEAN CORPUSCULAR HEMOGLOBIN 31.2 uug (23.8-33.4); MEAN CORPUSCULAR HGB CONC 34 g/dL (32.5-36.3); MEAN CORPUSCULAR VOLUME 92.9 fL (73.0-96.2); MONOCYTES # (AUTO) 0.3 K/uL (2.0-10.0); MONOCYTES % (AUTO) 1.2 % (0.0-11.0); NEUTROPHILS # (AUTO) 20.8 K/uL (1.8-8.9); NEUTROPHILS % (AUTO) 96.4 % (38.5-71.5); PLATELET COUNT (AUTO) 292 K/uL (152-348); RED BLOOD CELL COUNT(AUTO) 3.97 MIL/uL (4.06-5.63); WHITE BLOOD COUNT (AUTO) 21.6 K/uL (3.6-10.2)
[2018-05-14 06:47] LABS: CARBON DIOXIDE 24 mmol/L (21-32); CHLORIDE 103 mmol/L (98-107); CHOLESTEROL 128 mg/dL (<200); CREATININE 2.4 mg/dL (0.6-1.3); GLUCOSE 212 mg/dL (74-106); HDL CHOLESTEROL 48 mg/dL (40-60); MAGNESIUM 2.2 mg/dL (1.8-2.4); PHOSPHOROUS 4.9 mg/dL (2.5-4.9); POTASSIUM 5.2 mmol/L (3.5-5.1); TRIGLYCERIDES 137 MG/DL (30-150); UREA NITROGEN, BLOOD 63 mg/dL (7-18)
[2018-05-14 07:00] LABS: THYROID STIMULATING HORMONE 3.614 mIU/mL (0.358-3.740)
[2018-05-14] MEDS: LEVOTHYROXINE SODIUM 100 MCG TABLET PO SCH (07:00)
[2018-05-14 08:10] LABS: *BILIRUBIN,URIN NEGATIVE (NEGATIVE); *BLOOD, URINE Trace-intact (NEGATIVE); *CLARITY,URINE CLOUDY (CLEAR); *COLOR,URINE YELLOW (YELLOW); *KETONES,URINE NEGATIVE (NEGATIVE); *PROTEIN,URINE TRACE (NEGATIVE); *UROBILINOGEN,URINE 0.2 E.U./dl (NORMAL); LEUKOCYTE ESTERASE ,URINE NEGATIVE (NEGATIVE); NITRITE, URINE NEGATIVE (NEGATIVE); UGLUCOSE NEGATIVE (NEGATIVE)
[2018-05-14 08:17] LABS: WBC,URINE 50-80 /HPF (0-3)
[2018-05-14 08:18] LABS: BACTERIA,URINE FEW /HPF (NONE SEEN); SQUAMOUS EPITHELIAL CELL,UR MANY /HPF (NONE SEEN); YEAST,URINE MANY /HPF (NONE SEEN)
[2018-05-14] MEDS ORDERED: Medication Not On Formulary EA (Lubiprostone (Amitiza) 24 MCG) PO SCH (09:00)
[2018-05-14] MEDS ORDERED: BIMATOPROST 0.01% OPHT DROP 2.5 ML BOTTLE OP SCH (09:00)
[2018-05-14] MEDS: PANTOPRAZOLE SODIUM 40 MG VIAL IV SCH (09:22)
[2018-05-14] MEDS: DOCUSATE SODIUM 100 MG CAPSULE PO SCH ×2 (09:23→17:24)
[2018-05-14] MEDS: METOPROLOL TARTRATE 25 MG TABLET PO SCH ×2 (09:24→17:00)
[2018-05-14] MEDS: ESCITALOPRAM OXALATE 10 MG TABLET PO SCH (09:26)
[2018-05-14] MEDS: ASPIRIN EC 81 MG TABLET.DR PO SCH (09:26)
[2018-05-14] MEDS: CYANOCOBALAMIN 100 MCG TABLET PO SCH (09:26)
[2018-05-14] MEDS: HEPARIN SODIUM,PORCINE 5,000 UNITS/ML VIAL SQ SCH ×2 (09:27→21:43)
[2018-05-14 13:11] LABS: *URINE TOTAL PROTEIN RANDOM 49.9 mg/dL (<150/24HR)
[2018-05-14] MEDS: ACETYLCYSTEINE 10% 4ML VIAL NEB SCH ×3 (14:50→22:47)
[2018-05-14 15:04] LABS: *AMPHETAMINE, URINE NEGATIVE (NEGATIVE); *BARBITURATE, URINE NEGATIVE (NEGATIVE); *CANNABINOID, URINE NEGATIVE (NEGATIVE); *COCCAINE, URINE NEGATIVE (NEGATIVE); *OPIATE, URINE NEGATIVE (NEGATIVE); *PHENCYCLIDINE SCREEN,URINE NEGATIVE (NEGATIVE)
[2018-05-14] MEDS: MICAFUNGIN SODIUM 100 MG in IV NORMAL SALINE 100 ML IV SCH (21:42)
[2018-05-14] MEDS: MEROPENEM 500 MG in IV NORMAL SALINE 50 ML IV SCH (21:42)
[2018-05-14] MEDS: LATANOPROST OPHT DROP 2.5 ML BOTTLE RIGHTEYE SCH (21:42)
[2018-05-14] MEDS: SIMVASTATIN 10 MG TABLET PO SCH (21:42)
[2018-05-14] MEDS: IPRATROPIUM BROMIDE 0.5 MG/2.5 ML NEBU NEB SCH (22:48)
[2018-05-14] MEDS: ALBUTEROL SULFATE 2.5 MG/3 ML NEBU NEB SCH (22:48)
[2018-05-15 00:56] VITALS: BP 106/59
[2018-05-15 05:57] VITALS: BP 103/42
[2018-05-15] MEDS: methylPREDNISolone SOD SUCC 40 MG/ML VIAL IV SCH ×3 (06:26→21:05)
[2018-05-15] MEDS: LEVOTHYROXINE SODIUM 100 MCG TABLET PO SCH (06:53)
[2018-05-15 07:19] VITALS: BP 132/59
[2018-05-15] MEDS: ACETYLCYSTEINE 10% 4ML VIAL NEB SCH ×2 (07:19→15:10)
[2018-05-15] MEDS: ALBUTEROL SULFATE 2.5 MG/3 ML NEBU NEB SCH ×2 (07:20→15:10)
[2018-05-15 07:55] LABS: HEMOGLOBIN 10.8 g/dL (12.5-16.3); LYMPHOCYTES # (AUTO) 0.6 K/uL (20.0-40.0); LYMPHOCYTES % (AUTO) 4.5 % (20.5-51.5); MEAN CORPUSCULAR HEMOGLOBIN 31.4 uug (23.8-33.4); MEAN CORPUSCULAR HGB CONC 33 g/dL (32.5-36.3); MEAN CORPUSCULAR VOLUME 94.3 fL (73.0-96.2); MONOCYTES # (AUTO) 0.2 K/uL (2.0-10.0); MONOCYTES % (AUTO) 1.9 % (0.0-11.0); NEUTROPHILS % (AUTO) 93.6 % (38.5-71.5); PLATELET COUNT (AUTO) 256 K/uL (152-348); RED BLOOD CELL COUNT(AUTO) 3.42 MIL/uL (4.06-5.63)
[2018-05-15 08:09] LABS: CARBON DIOXIDE 25 mmol/L (21-32); CHLORIDE 108 mmol/L (98-107); CREATININE 1.6 mg/dL (0.6-1.3); GLUCOSE 152 mg/dL (74-106); POTASSIUM 5.1 mmol/L (3.5-5.1); UREA NITROGEN, BLOOD 58 mg/dL (7-18); VANCOMYCIN,RANDOM 6.1 ug/mL (18.0-26.0)
[2018-05-15] MEDS: CYANOCOBALAMIN 100 MCG TABLET PO SCH (09:14)
[2018-05-15] MEDS: DOCUSATE SODIUM 100 MG CAPSULE PO SCH ×2 (09:14→16:46)
[2018-05-15] MEDS: ASPIRIN EC 81 MG TABLET.DR PO SCH (09:14)
[2018-05-15] MEDS: ESCITALOPRAM OXALATE 10 MG TABLET PO SCH (09:14)
[2018-05-15] MEDS: PANTOPRAZOLE SODIUM 40 MG VIAL IV SCH (09:14)
[2018-05-15] MEDS: METOPROLOL TARTRATE 25 MG TABLET PO SCH ×2 (09:15→16:46)
[2018-05-15 09:16] LABS: HEMATOCRIT 32.3 % (36.7-47.1); WHITE BLOOD COUNT (AUTO) 12.8 K/uL (3.6-10.2)
[2018-05-15] MEDS: HEPARIN SODIUM,PORCINE 5,000 UNITS/ML VIAL SQ SCH ×2 (09:17→21:07)
[2018-05-15] MEDS: IV NS 1000 ML 1,000 ML IV PRN (09:19)
[2018-05-15] MEDS: MEROPENEM 500 MG in IV NORMAL SALINE 50 ML IV SCH ×2 (10:19→23:25)
[2018-05-15] MEDS ORDERED: VANCOMYCIN IV 1 G in PREMIXED 0 EACH IV ONE (11:00)
[2018-05-15 11:02] VITALS: BP 130/62
[2018-05-15 15:07] VITALS: BP 107/56
[2018-05-15 20:00] VITALS: BP 121/58
[2018-05-15] MEDS: MICAFUNGIN SODIUM 100 MG in IV NORMAL SALINE 100 ML IV SCH (20:00)
[2018-05-15] MEDS: LATANOPROST OPHT DROP 2.5 ML BOTTLE RIGHTEYE SCH (21:03)
[2018-05-15] MEDS: SIMVASTATIN 10 MG TABLET PO SCH (21:03)
[2018-05-15] MEDS: LEVOFLOXACIN 500 MG/D5W 500 MG in PREMIXED 1 EACH IV SCH (21:03)
[2018-05-16] VITALS: BP 115/64
[2018-05-16] MEDS: ACETYLCYSTEINE 10% 4ML VIAL NEB SCH ×4 (00:13→23:15)
[2018-05-16] MEDS: IPRATROPIUM BROMIDE 0.5 MG/2.5 ML NEBU NEB SCH ×2 (00:14→08:22)
[2018-05-16] MEDS: ALBUTEROL SULFATE 2.5 MG/3 ML NEBU NEB SCH ×4 (00:14→23:16)
[2018-05-16 05:00] VITALS: BP 144/60
[2018-05-16] MEDS: methylPREDNISolone SOD SUCC 40 MG/ML VIAL IV SCH ×3 (05:48→21:34)
[2018-05-16] MEDS: PANTOPRAZOLE SODIUM 40 MG TABLET.DR PO SCH (06:11)
[2018-05-16 06:19] LABS: BASOPHILS % (AUTO) 0.2 % (0.0-2.0); HEMOGLOBIN 10.7 g/dL (12.5-16.3); LYMPHOCYTES # (AUTO) 0.5 K/uL (20.0-40.0); MEAN CORPUSCULAR HEMOGLOBIN 31.7 uug (23.8-33.4); MEAN CORPUSCULAR HGB CONC 34 g/dL (32.5-36.3); MEAN CORPUSCULAR VOLUME 94.4 fL (73.0-96.2); MONOCYTES # (AUTO) 0.2 K/uL (2.0-10.0); MONOCYTES % (AUTO) 1.9 % (0.0-11.0); NEUTROPHILS # (AUTO) 11.5 K/uL (1.8-8.9); NEUTROPHILS % (AUTO) 93.9 % (38.5-71.5); PLATELET COUNT (AUTO) 239 K/uL (152-348); RED BLOOD CELL COUNT(AUTO) 3.39 MIL/uL (4.06-5.63); WHITE BLOOD COUNT (AUTO) 12.2 K/uL (3.6-10.2)
[2018-05-16 06:37] LABS: CARBON DIOXIDE 24 mmol/L (21-32); CHLORIDE 107 mmol/L (98-107); CREATININE 1.4 mg/dL (0.6-1.3); GLUCOSE 144 mg/dL (74-106); MAGNESIUM 2.1 mg/dL (1.8-2.4); PHOSPHOROUS 2.9 mg/dL (2.5-4.9); POTASSIUM 4.9 mmol/L (3.5-5.1); UREA NITROGEN, BLOOD 56 mg/dL (7-18)
[2018-05-16] MEDS: LEVOTHYROXINE SODIUM 100 MCG TABLET PO SCH (06:41)
[2018-05-16 07:37] VITALS: BP 149/70
[2018-05-16] MEDS: ASPIRIN EC 81 MG TABLET.DR PO SCH (08:42)
[2018-05-16] MEDS: DOCUSATE SODIUM 100 MG CAPSULE PO SCH ×2 (08:42→17:15)
[2018-05-16] MEDS: ESCITALOPRAM OXALATE 10 MG TABLET PO SCH (08:42)
[2018-05-16] MEDS: CYANOCOBALAMIN 100 MCG TABLET PO SCH (08:42)
[2018-05-16] MEDS: METOPROLOL TARTRATE 25 MG TABLET PO SCH ×2 (08:43→17:16)
[2018-05-16] MEDS: MEROPENEM 500 MG in IV NORMAL SALINE 50 ML IV SCH ×2 (08:44→21:29)
[2018-05-16] MEDS: HEPARIN SODIUM,PORCINE 5,000 UNITS/ML VIAL SQ SCH ×2 (08:44→20:41)
[2018-05-16] MEDS ORDERED: VANCOMYCIN IV 1 G in PREMIXED 0 EACH IV ONE (10:00)
[2018-05-16 11:46] VITALS: BP 145/62
[2018-05-16 15:57] VITALS: BP 121/58
[2018-05-16 20:00] VITALS: BP 101/53
[2018-05-16] MEDS: MICAFUNGIN SODIUM 100 MG in IV NORMAL SALINE 100 ML IV SCH (20:28)
[2018-05-16] MEDS: SIMVASTATIN 10 MG TABLET PO SCH (20:41)
[2018-05-16] MEDS: LATANOPROST OPHT DROP 2.5 ML BOTTLE RIGHTEYE SCH (20:42)
[2018-05-17] VITALS: BP 143/70
[2018-05-17 04:00] VITALS: BP 140/86
[2018-05-17] MEDS ORDERED: methylPREDNISolone SOD SUCC 40 MG/ML VIAL ONE ×2 (05:48→05:50)
[2018-05-17] MEDS: methylPREDNISolone SOD SUCC 40 MG/ML VIAL IV SCH ×3 (06:07→22:04)
[2018-05-17] MEDS: PANTOPRAZOLE SODIUM 40 MG TABLET.DR PO SCH (06:12)
[2018-05-17] MEDS: LEVOTHYROXINE SODIUM 100 MCG TABLET PO SCH (06:44)
[2018-05-17 07:15] LABS: BASOPHILS % (AUTO) 0.1 % (0.0-2.0); HEMATOCRIT 34.8 % (36.7-47.1); HEMOGLOBIN 11.6 g/dL (12.5-16.3); LYMPHOCYTES # (AUTO) 0.7 K/uL (20.0-40.0); LYMPHOCYTES % (AUTO) 7.6 % (20.5-51.5); MEAN CORPUSCULAR HEMOGLOBIN 31.3 uug (23.8-33.4); MEAN CORPUSCULAR HGB CONC 33 g/dL (32.5-36.3); MEAN CORPUSCULAR VOLUME 94.2 fL (73.0-96.2); MONOCYTES # (AUTO) 0.4 K/uL (2.0-10.0); MONOCYTES % (AUTO) 4.6 % (0.0-11.0); NEUTROPHILS # (AUTO) 7.8 K/uL (1.8-8.9); NEUTROPHILS % (AUTO) 87.7 % (38.5-71.5); PLATELET COUNT (AUTO) 281 K/uL (152-348); RED BLOOD CELL COUNT(AUTO) 3.69 MIL/uL (4.06-5.63); WHITE BLOOD COUNT (AUTO) 8.8 K/uL (3.6-10.2)
[2018-05-17 07:17] LABS: CARBON DIOXIDE 26 mmol/L (21-32); CHLORIDE 104 mmol/L (98-107); CREATININE 1.2 mg/dL (0.6-1.3); GLUCOSE 133 mg/dL (74-106); MAGNESIUM 2.1 mg/dL (1.8-2.4); POTASSIUM 4.5 mmol/L (3.5-5.1); UREA NITROGEN, BLOOD 55 mg/dL (7-18); VANCOMYCIN,RANDOM 12.2 ug/mL (18.0-26.0)
[2018-05-17] MEDS: IPRATROPIUM BROMIDE 0.5 MG/2.5 ML NEBU NEB SCH ×2 (07:23→14:52)
[2018-05-17] MEDS: ALBUTEROL SULFATE 2.5 MG/3 ML NEBU NEB SCH ×2 (07:23→14:53)
[2018-05-17] MEDS: ACETYLCYSTEINE 10% 4ML VIAL NEB SCH ×2 (07:23→14:53)
[2018-05-17 07:59] VITALS: BP 138/59
[2018-05-17] MEDS: ESCITALOPRAM OXALATE 10 MG TABLET PO SCH (08:43)
[2018-05-17] MEDS: CYANOCOBALAMIN 100 MCG TABLET PO SCH (08:43)
[2018-05-17] MEDS: ASPIRIN EC 81 MG TABLET.DR PO SCH (08:43)
[2018-05-17] MEDS: HEPARIN SODIUM,PORCINE 5,000 UNITS/ML VIAL SQ SCH ×2 (08:44→20:33)
[2018-05-17] MEDS: METOPROLOL TARTRATE 25 MG TABLET PO SCH ×2 (08:47→16:58)
[2018-05-17] MEDS: DOCUSATE SODIUM 100 MG CAPSULE PO SCH ×2 (08:48→16:18)
[2018-05-17] MEDS: MEROPENEM 500 MG in IV NORMAL SALINE 50 ML IV SCH ×2 (09:09→21:57)
[2018-05-17] MEDS ORDERED: VANCOMYCIN IV 1 G in PREMIXED 0 EACH IV ONE (10:00)
[2018-05-17 12:09] VITALS: BP 117/60
[2018-05-17 15:30] VITALS: BP 148/73
[2018-05-17] MEDS ORDERED: MAG HYDROX/AL HYDROX/SIMETH 30 ML LIQUID UDC PO PRN (17:00)
[2018-05-17 19:00] VITALS: BP 159/70
[2018-05-17] MEDS: LEVOFLOXACIN 500 MG/D5W 500 MG in PREMIXED 1 EACH IV SCH (19:35)
[2018-05-17] MEDS: SIMVASTATIN 10 MG TABLET PO SCH (20:32)
[2018-05-17] MEDS: LATANOPROST OPHT DROP 2.5 ML BOTTLE RIGHTEYE SCH (20:34)
[2018-05-17] MEDS: MICAFUNGIN SODIUM 100 MG in IV NORMAL SALINE 100 ML IV SCH (20:42)
[2018-05-18] MEDS: ACETYLCYSTEINE 10% 4ML VIAL NEB SCH ×3 (00:33→14:30)
[2018-05-18 04:00] VITALS: BP 146/67
[2018-05-18] MEDS: PANTOPRAZOLE SODIUM 40 MG TABLET.DR PO SCH (06:19)
[2018-05-18] MEDS: methylPREDNISolone SOD SUCC 40 MG/ML VIAL IV SCH (06:27)
[2018-05-18] MEDS: LEVOTHYROXINE SODIUM 100 MCG TABLET PO SCH (06:31)
[2018-05-18] MEDS: ALBUTEROL SULFATE 2.5 MG/3 ML NEBU NEB SCH ×2 (07:40→14:29)
[2018-05-18] MEDS: DOCUSATE SODIUM 100 MG CAPSULE PO SCH (08:03)
[2018-05-18] MEDS: METOPROLOL TARTRATE 25 MG TABLET PO SCH (08:03)
[2018-05-18] MEDS: CYANOCOBALAMIN 100 MCG TABLET PO SCH (08:03)
[2018-05-18] MEDS: ESCITALOPRAM OXALATE 10 MG TABLET PO SCH (08:03)
[2018-05-18] MEDS: ASPIRIN EC 81 MG TABLET.DR PO SCH (08:03)
[2018-05-18] MEDS: MEROPENEM 500 MG in IV NORMAL SALINE 50 ML IV SCH (08:07)
[2018-05-18] MEDS: HEPARIN SODIUM,PORCINE 5,000 UNITS/ML VIAL SQ SCH (08:18)
[2018-05-18] MEDS ORDERED: VANCOMYCIN IV 1 G in PREMIXED 0 EACH IV ONE (09:00)
[2018-05-18 11:20] VITALS: BP 107/53
[2018-05-18] MEDS ORDERED: LATA2.5D2 RIGHTEYE (13:18)
[2018-05-18] MEDS ORDERED: ALBU2.5V7 NEB (13:18)
[2018-05-18] MEDS ORDERED: methylPREDNISolone SOD SUCC IV (13:18)
[2018-05-18] MEDS ORDERED: IPRA0.2S6 NEB (13:18)
[2018-05-18] MEDS ORDERED: HEPA50007 SQ (13:18)
[2018-05-18 15:00] VITALS: BP 101/66
[2018-05-18] MEDS ORDERED: methylPREDNISolone SOD SUCC 40 MG/ML VIAL IV SCH (21:00)
[2018-05-19] MEDS ORDERED: ANID100V2 IV (16:08)
[2018-05-19] MEDS ORDERED: METH40VI24 IJ (16:08)
[2018-05-19] MEDS ORDERED: LATA2.5D7 RIGHTEYE (16:08)
[2018-05-19] MEDS ORDERED: METO25TA6 PO (16:08)
[2018-05-19] MEDS ORDERED: OMEP1CAP24 PO (16:08)
[2018-05-19] MEDS ORDERED: FOLI0.8T2 PO (16:08)
[2018-05-19] MEDS ORDERED: LEVO500P10 IV (16:08)
[2018-05-19] MEDS ORDERED: ALBU2.5V38 IH (16:08)
[2018-05-19] MEDS ORDERED: IPRA0.2S6 NEB (16:08)
[2018-05-19] MEDS ORDERED: MERO500V3 IV (16:08)
[2018-05-19] MEDS ORDERED: HEPA500034 IJ (16:08)
== END 2018-05-18 15:15 | DRG 871 ==
LOC: ER 19:09 → TELE-TD 21:39 → MED 05-17 16:00
PROVIDERS: ADMIT Hospitalist; ATTEND Hospitalist
DX: A41.9 Sepsis, unspecified organism (principal); J96.01 Acute respiratory failure with hypoxia; N17.0 Acute kidney failure with tubular necrosis; J15.6 Pneumonia due to other Gram-negative bacteria; G93.41 Metabolic encephalopathy; J44.0 Chronic obstructive pulmonary disease with (acute) lower respiratory infection; J44.1 Chronic obstructive pulmonary disease with (acute) exacerbation; E44.0 Moderate protein-calorie malnutrition; B37.49 Other urogenital candidiasis; D68.59 Other primary thrombophilia; I13.0 Hypertensive heart and chronic kidney disease with heart failure and stage 1 through stage 4 chronic kidney disease, or unspecified chronic kidney disease; I50.32 Chronic diastolic (congestive) heart failure; J98.11 Atelectasis; R65.20 Severe sepsis without septic shock; T36.0X5A Adverse effect of penicillins, initial encounter; L27.1 Localized skin eruption due to drugs and medicaments taken internally; Y92.532 Urgent care center as the place of occurrence of the external cause; Z68.24 Body mass index [BMI] 24.0-24.9, adult; E78.5 Hyperlipidemia, unspecified; E11.22 Type 2 diabetes mellitus with diabetic chronic kidney disease; N18.9 Chronic kidney disease, unspecified; E87.5 Hyperkalemia; Z90.79 Acquired absence of other genital organ(s); Z85.51 Personal history of malignant neoplasm of bladder; Z85.46 Personal history of malignant neoplasm of prostate; Z85.819 Personal history of malignant neoplasm of unspecified site of lip, oral cavity, and pharynx; Z93.6 Other artificial openings of urinary tract status; Z79.51 Long term (current) use of inhaled steroids; N40.0 Benign prostatic hyperplasia without lower urinary tract symptoms; M89.9 Disorder of bone, unspecified; I70.0 Atherosclerosis of aorta; I25.10 Atherosclerotic heart disease of native coronary artery without angina pectoris; M25.561 Pain in right knee; W19.XXXA Unspecified fall, initial encounter; Y92.019 Unspecified place in single-family (private) house as the place of occurrence of the external cause
CPT/HCPCS: 36415; 36600; 70030-TC; 70450; 71045; 80307; 83605; 83690; 83735; 84100; 84156; 84300; 84443; 85025; 85730; 87040; 87086; 93931-RT; 94640; 94664; A4663; C1758; C9113; G0378; J1200; J1644; J1956; J2185; J2248; J2405; J2543; J2920; J2930; J3370; J3490; J3590; J7030

== ENCOUNTER 2018-05-19 15:14 | Inpatient (IN) | payer MEDICARE, OTHER ==
[~2018-05-19] VITALS: Ht 167.6 cm; Wt 78.5 kg
[~2018-05-19 15:14] MED LIST changes: +ALBU2.5V7 NEB; -AMITIZA 24 MCG; -Amoxicillin-Clav 500-125MG Tab PO; -FLUC100T PO; +HEPA50007 SQ; +IPRA0.2S6 NEB; +LATA2.5D2 RIGHTEYE; +LUBI24CA5 PO; -METH4TAB3 PO; +SIMV10TA6 PO; +methylPREDNISolone SOD SUCC IV
[2018-05-19] MEDS ORDERED: IPRATROPIUM BROMIDE 0.5 MG/2.5 ML NEBU NEB ONE (15:30)
[2018-05-19] MEDS ORDERED: ALBUTEROL SULFATE 2.5 MG/3 ML NEBU NEB ONE (15:30)
[2018-05-19 15:40] LABS: BASOPHILS # (AUTO) 0.1 K/uL (0.0-8.0); BASOPHILS % (AUTO) 1.1 % (0.0-2.0); HEMATOCRIT 40.3 % (36.7-47.1); HEMOGLOBIN 13.4 g/dL (12.5-16.3); LYMPHOCYTES # (AUTO) 0.9 K/uL (20.0-40.0); LYMPHOCYTES % (AUTO) 10.3 % (20.5-51.5); MEAN CORPUSCULAR HEMOGLOBIN 31.4 uug (23.8-33.4); MEAN CORPUSCULAR HGB CONC 33 g/dL (32.5-36.3); MEAN CORPUSCULAR VOLUME 94.5 fL (73.0-96.2); MONOCYTES # (AUTO) 0.3 K/uL (2.0-10.0); MONOCYTES % (AUTO) 3.1 % (0.0-11.0); NEUTROPHILS # (AUTO) 7.4 K/uL (1.8-8.9); NEUTROPHILS % (AUTO) 85.5 % (38.5-71.5); PLATELET COUNT (AUTO) 353 K/uL (152-348); RED BLOOD CELL COUNT(AUTO) 4.26 MIL/uL (4.06-5.63); WHITE BLOOD COUNT (AUTO) 8.6 K/uL (3.6-10.2)
[2018-05-19 15:49] LABS: CARBON DIOXIDE 28 mmol/L (21-32); CHLORIDE 100 mmol/L (98-107); CREATININE 1.6 mg/dL (0.6-1.3); GLUCOSE 156 mg/dL (74-106); POTASSIUM 4.9 mmol/L (3.5-5.1); UREA NITROGEN, BLOOD 67 mg/dL (7-18)
[2018-05-19] MEDS ORDERED: IPRATROPIUM BROMIDE 0.5 MG/2.5 ML NEBU ONE (15:51)
[2018-05-19] MEDS ORDERED: ALBUTEROL SULFATE 2.5 MG/3 ML NEBU ONE (15:51)
[2018-05-19 16:05] LABS: ALANINE AMINOTRANSFERASE 601 U/L (16-63); ALKALINE PHOSPHATASE 89 U/L (50-136); ASPARTATE AMINOTRANSFERASE 370 U/L (15-37); BILIRUBIN,DIRECT 0.2 mg/dL (0.0-0.2); BILIRUBIN,TOTAL 0.6 mg/dL (0.2-1.0); TOTAL PROTEIN, SERUM 7.1 g/dL (6.4-8.2)
[2018-05-19] MEDS ORDERED: FOLI0.8T2 PO (16:08)
[2018-05-19] MEDS ORDERED: ALBU2.5V38 IH (16:08)
[2018-05-19] MEDS ORDERED: ANID100V2 IV (16:08)
[2018-05-19] MEDS ORDERED: IPRA0.2S6 NEB (16:08)
[2018-05-19] MEDS ORDERED: MERO500V3 IV (16:08)
[2018-05-19] MEDS ORDERED: LATA2.5D7 RIGHTEYE (16:08)
[2018-05-19] MEDS ORDERED: HEPA500034 IJ (16:08)
[2018-05-19] MEDS ORDERED: OMEP1CAP24 PO (16:08)
[2018-05-19] MEDS ORDERED: METH40VI24 IJ (16:08)
[2018-05-19] MEDS ORDERED: LEVO500P10 IV (16:08)
[2018-05-19] MEDS ORDERED: METO25TA6 PO (16:08)
[2018-05-19 17:04] LABS: *BILIRUBIN,URIN NEGATIVE (NEGATIVE); *BLOOD, URINE NEGATIVE (NEGATIVE); *CLARITY,URINE CLEAR (CLEAR); *COLOR,URINE YELLOW (YELLOW); *KETONES,URINE NEGATIVE (NEGATIVE); *PROTEIN,URINE NEGATIVE (NEGATIVE); *UROBILINOGEN,URINE 0.2 E.U./dl (NORMAL); NITRITE, URINE NEGATIVE (NEGATIVE); UGLUCOSE NEGATIVE (NEGATIVE)
[2018-05-19 17:18] LABS: LEUKOCYTE ESTERASE ,URINE TRACE (NEGATIVE)
[2018-05-19 17:20] LABS: BACTERIA,URINE FEW /HPF (NONE SEEN); MUCUS,URINE FEW /LPF (0-FEW); RBC,URINE 0-3 /HPF (0-3)
[2018-05-19] MEDS ORDERED: MISCELLANEOUS MED XX ONE (17:30)
[2018-05-19] MEDS ORDERED: LEVOFLOXACIN 500 MG/D5W 100ML PIGGYBACK IV ONE (17:30)
[2018-05-19] MEDS ORDERED: LEVOFLOXACIN 500 MG/D5W 100 ML ONE (17:36)
[2018-05-19 18:29] VITALS: BP 108/62
[2018-05-19] MEDS ORDERED: Z GUARD REMEDY PASTE 57 GM TUBE TOP PRN (19:45)
[2018-05-19] MEDS ORDERED: ZOLPIDEM 5 MG TABLET PO PRN (19:45)
[2018-05-19] MEDS ORDERED: LEVOFLOXACIN 500 MG/D5W 500 MG in PREMIXED 1 EACH IV SCH (19:45)
[2018-05-19] MEDS ORDERED: HYDROCODONE/APAP 5-325MG TABLET PO PRN (19:45)
[2018-05-19] MEDS ORDERED: ACETAMINOPHEN 325 MG TABLET PO PRN (19:45)
[2018-05-19] MEDS ORDERED: ONDANSETRON 4 MG/2 ML VIAL IV PRN (19:45)
[2018-05-19] MEDS ORDERED: MAGNESIUM HYDROXIDE 30 ML LIQUID UDC PO PRN (19:45)
[2018-05-19] MEDS: IV NS 1000 ML 1,000 ML IV PRN (19:58)
[2018-05-19 20:00] VITALS: BP 113/71
[2018-05-19] MEDS: MEROPENEM 500 MG in IV NORMAL SALINE 50 ML IV SCH (21:08)
[2018-05-20] VITALS: BP 117/63
[2018-05-20 04:00] VITALS: BP 118/63
[2018-05-20 06:39] LABS: ALANINE AMINOTRANSFERASE 421 U/L (16-63); ALKALINE PHOSPHATASE 76 U/L (50-136); ASPARTATE AMINOTRANSFERASE 113 U/L (15-37); BILIRUBIN,TOTAL 0.5 mg/dL (0.2-1.0); CARBON DIOXIDE 27 mmol/L (21-32); CHLORIDE 102 mmol/L (98-107); CHOLESTEROL 197 mg/dL (<200); CREATININE 1.4 mg/dL (0.6-1.3); GLUCOSE 114 mg/dL (74-106); HDL CHOLESTEROL 48 mg/dL (40-60); PHOSPHOROUS 4.5 mg/dL (2.5-4.9); POTASSIUM 4.3 mmol/L (3.5-5.1); TOTAL PROTEIN, SERUM 6.2 g/dL (6.4-8.2); TRIGLYCERIDES 320 MG/DL (30-150); UREA NITROGEN, BLOOD 67 mg/dL (7-18)
[2018-05-20 06:40] LABS: BASOPHILS % (AUTO) 0.2 % (0.0-2.0); EOSINOPHILS % (AUTO) 0.5 % (0.0-7.0); HEMATOCRIT 36.8 % (36.7-47.1); HEMOGLOBIN 12.4 g/dL (12.5-16.3); LYMPHOCYTES # (AUTO) 1.2 K/uL (20.0-40.0); LYMPHOCYTES % (AUTO) 13.1 % (20.5-51.5); MEAN CORPUSCULAR HEMOGLOBIN 31.2 uug (23.8-33.4); MEAN CORPUSCULAR HGB CONC 34 g/dL (32.5-36.3); MEAN CORPUSCULAR VOLUME 92.7 fL (73.0-96.2); MONOCYTES # (AUTO) 0.7 K/uL (2.0-10.0); MONOCYTES % (AUTO) 7.6 % (0.0-11.0); NEUTROPHILS # (AUTO) 6.9 K/uL (1.8-8.9); NEUTROPHILS % (AUTO) 78.6 % (38.5-71.5); PLATELET COUNT (AUTO) 288 K/uL (152-348); RED BLOOD CELL COUNT(AUTO) 3.97 MIL/uL (4.06-5.63); WHITE BLOOD COUNT (AUTO) 8.8 K/uL (3.6-10.2)
[2018-05-20] MEDS: MEROPENEM 500 MG in IV NORMAL SALINE 50 ML IV SCH (08:07)
[2018-05-20 11:17] VITALS: BP 102/65
[2018-05-20] MEDS: IV NS 1000 ML 1,000 ML IV PRN (11:56)
[2018-05-20 15:10] VITALS: BP 121/72
[2018-05-20] MEDS: LEVOFLOXACIN 250MG /D5W 250 MG in PREMIXED 1 EACH IV SCH (16:23)
[2018-05-20] MEDS ORDERED: IPRATROPIUM BROMIDE 0.5 MG/2.5 ML NEBU NEB PRN (18:00)
[2018-05-20] MEDS ORDERED: ALBUTEROL SULFATE 2.5 MG/3 ML NEBU IH PRN (18:00)
[2018-05-20 20:00] VITALS: BP 113/63
[2018-05-20] MEDS: SIMVASTATIN 10 MG TABLET PO SCH (20:11)
[2018-05-20] MEDS: LACTOBACILLUS RHAMNOSUS GG 1 EACH CAPSULE PO SCH (20:11)
[2018-05-20] MEDS: HEPARIN SODIUM,PORCINE 5,000 UNITS/ML VIAL SQ SCH (20:12)
[2018-05-20] MEDS ORDERED: LATANOPROST OPHT DROP 2.5 ML BOTTLE RIGHTEYE SCH (21:00)
[2018-05-20] MEDS ORDERED: MEROPENEM 500 MG VIAL IV SCH (21:00)
[2018-05-20] MEDS: methylPREDNISolone SOD SUCC 40 MG/ML VIAL IV SCH (22:39)
[2018-05-21] VITALS: BP 119/62
[2018-05-21] MEDS: IV NS 1000 ML 1,000 ML IV PRN ×2 (02:30→15:59)
[2018-05-21 04:00] VITALS: BP 118/61
[2018-05-21] MEDS: methylPREDNISolone SOD SUCC 40 MG/ML VIAL IV SCH ×3 (06:12→21:06)
[2018-05-21] MEDS: PANTOPRAZOLE SODIUM 40 MG TABLET.DR PO SCH (06:12)
[2018-05-21] MEDS: LEVOTHYROXINE SODIUM 100 MCG TABLET PO SCH (06:12)
[2018-05-21 06:31] LABS: BASOPHILS % (AUTO) 0.1 % (0.0-2.0); EOSINOPHILS % (AUTO) 0.2 % (0.0-7.0); HEMATOCRIT 35.7 % (36.7-47.1); LYMPHOCYTES # (AUTO) 0.7 K/uL (20.0-40.0); LYMPHOCYTES % (AUTO) 11.9 % (20.5-51.5); MEAN CORPUSCULAR HEMOGLOBIN 30.9 uug (23.8-33.4); MEAN CORPUSCULAR HGB CONC 34 g/dL (32.5-36.3); MEAN CORPUSCULAR VOLUME 92.3 fL (73.0-96.2); MONOCYTES # (AUTO) 0.1 K/uL (2.0-10.0); MONOCYTES % (AUTO) 2.4 % (0.0-11.0); NEUTROPHILS # (AUTO) 5.2 K/uL (1.8-8.9); NEUTROPHILS % (AUTO) 85.4 % (38.5-71.5); PLATELET COUNT (AUTO) 258 K/uL (152-348); RED BLOOD CELL COUNT(AUTO) 3.88 MIL/uL (4.06-5.63); WHITE BLOOD COUNT (AUTO) 6.1 K/uL (3.6-10.2)
[2018-05-21 07:07] LABS: ALANINE AMINOTRANSFERASE 275 U/L (16-63); ALKALINE PHOSPHATASE 70 U/L (50-136); ASPARTATE AMINOTRANSFERASE 46 U/L (15-37); BILIRUBIN,TOTAL 0.5 mg/dL (0.2-1.0); CARBON DIOXIDE 24 mmol/L (21-32); CHLORIDE 104 mmol/L (98-107); CREATININE 1.3 mg/dL (0.6-1.3); GLUCOSE 153 mg/dL (74-106); PHOSPHOROUS 4.2 mg/dL (2.5-4.9); POTASSIUM 4.8 mmol/L (3.5-5.1); TOTAL PROTEIN, SERUM 5.9 g/dL (6.4-8.2); UREA NITROGEN, BLOOD 62 mg/dL (7-18)
[2018-05-21] MEDS: ESCITALOPRAM OXALATE 10 MG TABLET PO SCH (08:53)
[2018-05-21] MEDS: FOLIC ACID/VITAMIN B COMP W-C TABLET PO SCH (08:53)
[2018-05-21] MEDS: LACTOBACILLUS RHAMNOSUS GG 1 EACH CAPSULE PO SCH ×2 (08:53→20:08)
[2018-05-21] MEDS: ASPIRIN EC 81 MG TABLET.DR PO SCH (08:53)
[2018-05-21] MEDS: METOPROLOL TARTRATE 25 MG TABLET PO SCH ×2 (08:54→21:00)
[2018-05-21] MEDS: DOCUSATE SODIUM 100 MG CAPSULE PO SCH ×2 (08:54→16:51)
[2018-05-21] MEDS: CYANOCOBALAMIN 100 MCG TABLET PO SCH (08:54)
[2018-05-21] MEDS ORDERED: Medication Not On Formulary EA (Omeprazole/Sodium Bicarbonate (Omeprazole-Bicarb 20-1,10 PO SCH (09:00)
[2018-05-21] MEDS ORDERED: BIMATOPROST 0.01% OPHT DROP 2.5 ML BOTTLE OP SCH (09:00)
[2018-05-21] MEDS: HEPARIN SODIUM,PORCINE 5,000 UNITS/ML VIAL SQ SCH ×2 (09:00→19:55)
[2018-05-21] MEDS ORDERED: LATANOPROST OPHT DROP 2.5 ML BOTTLE RIGHTEYE SCH (09:00)
[2018-05-21] MEDS ORDERED: Medication Not On Formulary EA (Lubiprostone (Amitiza) 24 MCG) PO SCH (09:00)
[2018-05-21] MEDS: FLUTICASONE/VILANTEROL 1 EACH BLST.W.DEV IH SCH (10:25)
[2018-05-21 11:16] VITALS: BP 98/56
[2018-05-21 15:04] VITALS: BP 112/65
[2018-05-21] MEDS: LEVOFLOXACIN 250MG /D5W 250 MG in PREMIXED 1 EACH IV SCH (16:47)
[2018-05-21] MEDS: SIMVASTATIN 10 MG TABLET PO SCH (20:08)
[2018-05-21 20:25] VITALS: BP 109/50
[2018-05-22 00:47] VITALS: BP 110/65
[2018-05-22 04:00] VITALS: BP 135/67
[2018-05-22] MEDS: PANTOPRAZOLE SODIUM 40 MG TABLET.DR PO SCH (06:13)
[2018-05-22] MEDS: methylPREDNISolone SOD SUCC 40 MG/ML VIAL IV SCH ×2 (06:13→13:32)
[2018-05-22] MEDS: IV NS 1000 ML 1,000 ML IV PRN (06:13)
[2018-05-22] MEDS: LEVOTHYROXINE SODIUM 100 MCG TABLET PO SCH (06:13)
[2018-05-22 06:49] LABS: ALANINE AMINOTRANSFERASE 201 U/L (16-63); ALKALINE PHOSPHATASE 64 U/L (50-136); ASPARTATE AMINOTRANSFERASE 23 U/L (15-37); BILIRUBIN,TOTAL 0.4 mg/dL (0.2-1.0); CARBON DIOXIDE 25 mmol/L (21-32); CHLORIDE 104 mmol/L (98-107); CREATININE 1.1 mg/dL (0.6-1.3); GLUCOSE 145 mg/dL (74-106); MAGNESIUM 1.9 mg/dL (1.8-2.4); POTASSIUM 4.5 mmol/L (3.5-5.1); TOTAL PROTEIN, SERUM 5.8 g/dL (6.4-8.2); UREA NITROGEN, BLOOD 57 mg/dL (7-18)
[2018-05-22] MEDS: FLUTICASONE/VILANTEROL 1 EACH BLST.W.DEV IH SCH (08:40)
[2018-05-22] MEDS: FOLIC ACID/VITAMIN B COMP W-C TABLET PO SCH (08:41)
[2018-05-22] MEDS: CYANOCOBALAMIN 100 MCG TABLET PO SCH (08:41)
[2018-05-22] MEDS: ESCITALOPRAM OXALATE 10 MG TABLET PO SCH (08:41)
[2018-05-22] MEDS: ASPIRIN EC 81 MG TABLET.DR PO SCH (08:41)
[2018-05-22] MEDS: LACTOBACILLUS RHAMNOSUS GG 1 EACH CAPSULE PO SCH (08:41)
[2018-05-22] MEDS: METOPROLOL TARTRATE 25 MG TABLET PO SCH (08:42)
[2018-05-22] MEDS: DOCUSATE SODIUM 100 MG CAPSULE PO SCH (08:42)
[2018-05-22] MEDS: HEPARIN SODIUM,PORCINE 5,000 UNITS/ML VIAL SQ SCH (08:48)
[2018-05-22] MEDS ORDERED: LEVOFLOXACIN IV SCH (09:00)
[2018-05-22] MEDS ORDERED: [UNRECOGNIZED DRUG - OTHER] IV SCH (09:00)
[2018-05-22] MEDS ORDERED: D5W 500 MG IV SCH (09:00)
[2018-05-22 11:20] VITALS: BP 109/56
== END 2018-05-22 14:50 | DRG 189 ==
LOC: ER 15:16 → TELE 17:56
PROVIDERS: ADMIT Registered Nurse; ATTEND Internal Medicine
PROC: 02HV33Z Insertion of Infusion Device into Superior Vena Cava, Percutaneous Approach (ICD-10-PCS; principal; 2018-05-19)
DX: J96.21 Acute and chronic respiratory failure with hypoxia (principal); J15.6 Pneumonia due to other Gram-negative bacteria; N17.0 Acute kidney failure with tubular necrosis; G93.41 Metabolic encephalopathy; N39.0 Urinary tract infection, site not specified; E44.0 Moderate protein-calorie malnutrition; I13.0 Hypertensive heart and chronic kidney disease with heart failure and stage 1 through stage 4 chronic kidney disease, or unspecified chronic kidney disease; I50.32 Chronic diastolic (congestive) heart failure; D68.59 Other primary thrombophilia; E87.2 Acidosis; Z68.27 Body mass index [BMI] 27.0-27.9, adult; Z85.819 Personal history of malignant neoplasm of unspecified site of lip, oral cavity, and pharynx; Z85.51 Personal history of malignant neoplasm of bladder; E66.9 Obesity, unspecified; Z71.3 Dietary counseling and surveillance; Z93.6 Other artificial openings of urinary tract status; Z87.01 Personal history of pneumonia (recurrent); Z85.46 Personal history of malignant neoplasm of prostate; Z90.79 Acquired absence of other genital organ(s); I25.10 Atherosclerotic heart disease of native coronary artery without angina pectoris; F03.90 Unspecified dementia, unspecified severity, without behavioral disturbance, psychotic disturbance, mood disturbance, and anxiety; E11.22 Type 2 diabetes mellitus with diabetic chronic kidney disease; N18.9 Chronic kidney disease, unspecified; Z74.09 Other reduced mobility; E86.0 Dehydration; D63.1 Anemia in chronic kidney disease; T36.7X5A Adverse effect of antifungal antibiotics, systemically used, initial encounter; Y92.129 Unspecified place in nursing home as the place of occurrence of the external cause; R74.0 Nonspecific elevation of levels of transaminase and lactic acid dehydrogenase [LDH]
CPT/HCPCS: 36415; 70030-TC; 70450; 71045; 83605; 83735; 84100; 85025; 87040; 87086; 93005; A4663; G0378; J1644; J1956; J2185; J2920; J3490; J3590; J7030